=== PATIENT | female | born 1995 | race African-American/Black ===

== ENCOUNTER 2016-12-31 01:21 | Emergency (ER) | payer OTHER ==
[2016-12-31 01:52] VITALS: BP 149/92; PULSE 79; TEMP 97.9; BMI 34.3
[2016-12-31] MEDS ORDERED: metroNIDAZOLE 250 MG TABLET PO ONE (02:11)
[2016-12-31] MEDS ORDERED: AZITHROMYCIN 1 GM PACKET PO ONE (02:11)
[2016-12-31] MEDS ORDERED: valACYclovir HCL 1000 MG TABLET PO ONE (02:11)
--- NOTE | 2016-12-31 02:16 | PDOC ---
History of Present Illness - General Chief Complaint: Wound Stated Complaint: ABSCESS Time Seen by Provider: 12/31/16 01:52 History Source: Patient Exam Limitations: No Limitations - History of Present Illness Initial Comments: 12/31/16 02:21 21yo Female patient presents to ED c/o ingrown hair in vaginal area since last Friday. Patient reports she has applied warm compress to area, used Tylenol and Motrin with no relief of pain. LNMP: 1 week ago. Last sexual encounter: 2 months ago "protected." Patient states wound is draining fluid and will not heal , she also states applying triple abx to site. Denies fever, cough, dysuria, hematuria, frequency, urgency, back pain, n/v/d, CP, diff breathing, or any other complaints at this time. Timing/Duration: 1 week, getting worse Severity: severe Modifying Factors: worse with: cold therapy, eating, immobilization, medication , movement, rest, other Associated Symptoms: denies: denies symptoms, chest pain, cough, diaphoresis, fever/chills, headaches, loss of appetite, malaise, nausea/vomiting, rash, seizure, shortness of breath, syncope, weakness, other Aspirin Received prior to arrival: No: no aspirin today, unknown, 81 mg x 1, 81 mg x 2, 81 mg x 3, 81 mg x 4, 325 mg x 1, provided at home, provided by EMS, provided by [facility] Contraindications(Core Measure): No: Allergy, Other, Active Blding w/i 24 hrs., Plavix, Receiving Warfarin Past History - Travel Traveled outside of the country in the last 30 days: No Close contact w/someone who was outside of country & ill: No - Past Medical History Allergies/Adverse Reactions: Allergies Allergy/AdvReac Type Severity Reaction Status Date / Time Penicillins Allergy Mild Rash Verified 12/31/16 01:50 Home Medications: Ambulatory Orders Bupropion HCl [Wellbutrin Sr] 150 mg PO DAILY 11/09/12 Cyclobenzaprine HCl [Flexeril] 10 mg PO TID #0 tablet 11/09/12 Oxycodone HCl/Acetaminophen [Percocet 5-325 mg Tablet] 1 - 2 tab PO Q6H #14 tablet 11/09/12 Oxycodone HCl/Acetaminophen [Percocet 10-325 mg Tablet] 1 each PO Q6H PRN #20 tablet MDD 4 tab 12/31/16 Valacyclovir HCl [Valtrex -] 1,000 mg PO Q12H #14 tablet 12/31/16 - Immunization History Immunization Up to Date: Yes - Psycho/Social/Smoking Cessation Hx Anxiety: No Suicidal Ideation: No Smoking Status: Yes Smoking History: Never smoked Have you smoked in the past 12 months: No Number of Cigarettes Smoked Daily: 2 Information on smoking cessation initiated: No Hx Alcohol Use: No Drug/Substance Use Hx: No Review of Systems - Review of Systems Able to Perform ROS?: Yes Is the patient limited Mexican proficient: No Constitutional: No: Chills, Fever, Weakness Respiratory: No: Cough, Shortness of Breath, Stridor, Wheezing Cardiac (ROS): No: Chest Pain ABD/GI: No: Diarrhea, Nausea, Vomiting : Yes: Pain, Lesions. No: Burning, Dysuria, Discharge, Frequency, Flank Pain , Hematuria Musculoskeletal: No: Back Pain Integumentary: No: Rash All Other Systems: Reviewed and Negative *Physical Exam - Vital Signs Last Vital Signs Temp Pulse Resp BP Pulse Ox 97.9 F 79 20 149/92 99 12/31/16 01:50 12/31/16 01:50 12/31/16 01:50 12/31/16 01:50 12/31/16 01:50 - Physical Exam General Appearance: Yes: Nourished, Appropriately Dressed. No: Apparent Distress, Mild Distress, Moderate Distress, Severe Distress Respiratory/Chest: positive: Lungs Clear, Normal Breath Sounds. negative: Respiratory Distress, Labored Respiration, Rapid RR, Stridor, Wheezing Cardiovascular: positive: Regular Rhythm, Regular Rate. negative: Edema, JVD, Murmur Female Pelvic Exam: positive: normal adnexa, other (abnormal external exam; multiple sores/lesion noted to labia major along patient right side. Cervical os open, round. No CMT, wounds or lesion or blood noted to internal vaginal canal. Thick white odorless discharge noted. Bimanual exam WNL. ). negative: cervical os closed, CMT, discharge, adnexal tenderness, vaginal bleeding Gastrointestinal/Abdominal: positive: Normal Bowel Sounds, Soft. negative: Distended, Guarding, Rebound, Tenderness Lymphatic: negative: Adenopathy Musculoskeletal: positive: Normal Inspection. negative: CVA Tenderness Extremity: positive: Normal Capillary Refill, Normal Inspection, Normal Range of Motion. negative: Pedal Edema, Swelling Integumentary: positive: Normal Color, Dry, Warm Neurologic: positive: show card letterer II-XII NML intact, Fully Oriented, Alert, Normal Mood/ Affect, Normal Response, Motor Strength 5/5 *DC/Admit/Observation/Transfer Diagnosis at time of Disposition: Herpes genitalis in women - Discharge Dispostion Disposition: HOME Condition at time of disposition: Improved Admit: No - Prescriptions Prescriptions: Oxycodone HCl/Acetaminophen [Percocet 10-325 mg Tablet] 1 each PO Q6H PRN #20 tablet MDD 4 tab PRN Reason: Severe Pain Valacyclovir HCl [Valtrex -] 1,000 mg PO Q12H #14 tablet - Patient Instructions Printed Discharge Instructions: DI for Genital Herpes Additional Instructions: FOLLOW UP WITH YOUR CHIEF GROWTH OFFICER AND PRIMARY CARE PROVIDER. CALL TO SCHEDULE APPOINTMENT. TAKE MEDICATIONS PRESCRIBED. DO NOT DRIVE, DRINK ALCOHOL, OR OPERATE HEAVY MACHINERY WHILE TAKING PERCOCET. NO SEXUAL INTERCOURSE FOR 2 WEEKS , USE PROTECTION. NO WORK X 2 DAYS WITH REST. RETURN IF ANY CONCERNS FOR FURTHER EVALUATION. Print Language: ARMENIAN - Post Discharge Activity Work/School Note: Back to Work
[2016-12-31] MEDS ORDERED: cefTRIAXone SODIUM 1 GM VIAL ONE (02:21)
[2016-12-31] MEDS ORDERED: LIDOCAINE HCL 1%, 10 MG/ML (50 mL VIAL) INF ONE (02:26)
[2016-12-31] MEDS ORDERED: AZITHROMYCIN 1 GM PACKET ONE (02:34)
[2016-12-31] MEDS ORDERED: LIDOCAINE HCL/PF 1% SDV 5ML VIAL ONE (02:34)
[2016-12-31] MEDS ORDERED: morphine CARPU-JECT 2 MG/1 ML DISP.SYRIN IM ONE (03:12)
[2016-12-31] MEDS ORDERED: morphine CARPU-JECT 2 MG/1 ML DISP.SYRIN ONE (03:12)
[2016-12-31 03:51] LABS: URINE APPEARANCE CLEAR; URINE BILIRUBIN NEGATIVE (NEGATIVE); URINE BLOOD NEGATIVE (NEGATIVE); URINE COLOR YELLOW; URINE GLUCOSE (UA) NEGATIVE (NEGATIVE); URINE KETONE NEGATIVE (NEGATIVE); URINE LEUK ESTERASE NEGATIVE (NEGATIVE); URINE NITRITE NEGATIVE (NEGATIVE); URINE PROTEIN NEGATIVE (NEGATIVE); URINE UROBILINOGEN NEGATIVE E.U./dl (0.2-1.0)
[2017-01-02 10:19] LABS: CHLAM.TRACHOMATIS NAA Negative (Negative); GONOCOCCUS NAA Negative (Negative); TRICH VAG NAA Negative (Negative)
== END 2016-12-31 04:46 | disposition home or self-care (01) ==
LOC: JER 01:21
PROC: 3E02329 Introduction of Other Anti-infective into Muscle, Percutaneous Approach (ICD-10-PCS; principal; 2016-12-31)
PROC: 3E023NZ Introduction of Analgesics, Hypnotics, Sedatives into Muscle, Percutaneous Approach (ICD-10-PCS; 2016-12-31)
DX: A60.04 Herpesviral vulvovaginitis (principal)
CPT/HCPCS: 36415; 81003; 84703; 87070; 87086; 87186; 87205; 87491; 87591; 87661; 99282-25

== ENCOUNTER 2017-01-09 23:08 | Emergency (ER) | payer OTHER ==
[2017-01-09 23:18] VITALS: BP 144/88; PULSE 85; TEMP 98.4; BMI 49.8
--- NOTE | 2017-01-09 23:44 | PDOC ---
History of Present Illness - General History Source: Patient Exam Limitations: No Limitations - History of Present Illness Initial Comments: 01/10/17 00:26 The patient is a 21 year old female, with no specific past medical history, who presents to the emergency department complaining of a sore throat for approximately two days. The patient reports a frequent history of streptococcus pneumoniae infections. She reports todays symptoms are similar to when she has had strep in the past. She reports some swelling to the lymph nodes around the neck. The patient denies any body aches, fever, chills, headache, cough, or dizziness. The patient denies any abdominal pain, nausea, vomiting, diarrhea, or constipation. The patient denies any dysuria, hematuria, frequency, or urgency. The patient denies any recent travel or sick contacts. Allergies: Penicillins Past Surgical History: None reported. Social History: Current everyday smoker (6 cigarettes per day). Denies alcohol or drug use. <Monique Braxton - Last Filed: 01/10/17 00:25> - General History Source: Patient <Marc Andrea - Last Filed: 01/10/17 01:06> - General Chief Complaint: Sore Throat Stated Complaint: SWOLLEN GLANDS Time Seen by Provider: 01/09/17 23:43 Past History <Monique Braxton - Last Filed: 01/10/17 00:25> - Immunization History Immunization Up to Date: Yes - Psycho/Social/Smoking Cessation Hx Anxiety: No Suicidal Ideation: No Smoking Status: Yes Smoking History: Current every day smoker Have you smoked in the past 12 months: No Number of Cigarettes Smoked Daily: 6 Information on smoking cessation initiated: No Hx Alcohol Use: No Drug/Substance Use Hx: No <Marc Andrea - Last Filed: 01/10/17 01:06> - Past Medical History Allergies/Adverse Reactions: Allergies Allergy/AdvReac Type Severity Reaction Status Date / Time Penicillins Allergy Mild Rash Verified 01/09/17 23:10 Home Medications: Ambulatory Orders Ibuprofen 800 mg PO TID #30 tablet 01/10/17 Valacyclovir HCl [Valtrex -] 1,000 mg PO TID #60 tablet 01/10/17 Review of Systems - Review of Systems Able to Perform ROS?: Yes Comments:: 01/10/17 00:26 CONSTITUTIONAL: Absent: fever, no chills, no fatigue EYES: Absent: visual changes HEENT: Present: +sore throat, +throat swelling, Absent: rhinorrhea, nasal congestion, mouth swelling, ear pain, eye pain, visual Changes CARDIOVASCULAR: Absent: chest pain, no palpitations RESPIRATORY: Absent: cough, no SOB GI: Absent: abdominal pain, no nausea, no vomiting, no constipation, no diarrhea GENITOURINARY: Absent: dysuria, no frequency, no hematuria MUSKULOSKELETAL: Absent: back pain, no arthralgia, no myalgia SKIN: Absent: rash NEURO: Absent: headache <Danae Braxtonomivety - Last Filed: 01/10/17 00:25> *Physical Exam - Vital Signs Last Vital Signs Temp Pulse Resp BP Pulse Ox 98.4 F 85 14 144/88 99 01/09/17 23:11 01/09/17 23:11 01/09/17 23:11 01/09/17 23:11 01/09/17 23:11 - Physical Exam Comments: 01/10/17 00:30 GENERAL: Well-appearing, well-nourished. No apparent distress. HEENT: Normocephalic, atraumatic. PERRLA, EOMI. No conjunctival pallor. Sclera are non- icteric. Moist mucous membranes. Enlarged tonsils, nonerythematous with no exudate. NECK: Supple. Full ROM. No JVD. Carotid pulses 2+ and symmetric, without bruits. No thyromegaly. Edematous bilateral glands. Mild tenderness to palpation to nodes posterior of SCM. CARDIOVASCULAR: Normal S1, S2. Regular rate and rhythm. PULMONARY: Clear to auscultation bilaterally. ABDOMEN: Soft, non-distended, non-tender. EXTREMITIES: Normal ROM in all four extremities. No gross deformities. SKIN: Warm, dry. No rash NEUROLOGICAL: No focal neurological deficits. <Monique Braxton - Last Filed: 01/10/17 00:25> - Vital Signs Last Vital Signs Temp Pulse Resp BP Pulse Ox 98.4 F 85 14 144/88 99 01/09/17 23:11 01/09/17 23:11 01/09/17 23:11 01/09/17 23:11 01/09/17 23:11 <Marc Andrea - Last Filed: 01/10/17 01:06> Medical Decision Making - Medical Decision Making 01/10/17 01:06 Dr. Andrea: The scribe's documentation has been prepared under my direction and personally reviewed by me in its entirery. I confirm that the note above accurately reflects all work, treatment, procedures, and medical decision making performed by me. <Marc Andrea - Last Filed: 01/10/17 01:06> *DC/Admit/Observation/Transfer - Attestations Scribe Attestion: 01/10/17 00:30 Documentation prepared by Monique Braxton, acting as biomedical equipment tech for Marc Andrea DO. <Monique Braxton - Last Filed: 01/10/17 00:25> - Discharge Dispostion Admit: No <Marc Andrea - Last Filed: 01/10/17 01:06> Diagnosis at time of Disposition: Viral pharyngitis - Discharge Dispostion Disposition: HOME Condition at time of disposition: Stable - Prescriptions Prescriptions: Ibuprofen 800 mg PO TID #30 tablet Valacyclovir HCl [Valtrex -] 1,000 mg PO TID #60 tablet - Referrals Referrals: Donnie Rocha MD [Staff Physician] - - Patient Instructions Printed Discharge Instructions: DI for Viral Pharyngitis Additional Instructions: Please follow up with your doctor and the doctor you were referred to. Take medication as directed.
== END 2017-01-10 01:09 | disposition home or self-care (01) ==
LOC: JER 23:08
DX: J02.9 Acute pharyngitis, unspecified (principal); B97.89 Other viral agents as the cause of diseases classified elsewhere
CPT/HCPCS: 87070; 87430; 99281-25

== ENCOUNTER 2021-08-13 13:53 | Emergency (ER) | payer OTHER ==
[2021-08-13 14:17] VITALS: BMI 58.3
[2021-08-13] MEDS ORDERED: METOCLOPRAMIDE HCL INJECTION 10 MG/2 ML VIAL IVPB ONE (15:07)
[2021-08-13] MEDS ORDERED: SODIUM CHLORIDE 1,000 ML IV STA (15:07)
[2021-08-13] MEDS ORDERED: ACETAMINOPHEN 1000 MG/100 ML VIAL (NON FORMULARY) IVPB ONE (15:07)
[2021-08-13] MEDS ORDERED: METOCLOPRAMIDE HCL INJECTION 10 MG/2 ML VIAL ONE (15:21)
[2021-08-13] MEDS ORDERED: ACETAMINOPHEN INJECTION 100 ML IVPB ONE (15:21)
[2021-08-13 16:27] LABS: BASO % 0.7 % (0-2.0); EOS % 0.4 % (0-4.5); HEMOGLOBIN 13.5 GM/dL (10.7-15.3); MCH 30.3 pg (25.7-33.7); MCHC 33.8 g/dl (32.0-36.0); MEAN CELL VOLUME 89.6 fl (80-96); MEAN PLT VOLUME 7.2 fl (7.5-11.1); NEUT % 73.9 % (42.8-82.8); PLATELET COUNT 383 10^3/uL (134-434); RBC 4.46 M/mm3 (3.60-5.2); RDW 14.9 % (11.6-15.6); WHITE BLOOD COUNT 9.9 K/mm3 (4.0-10.0)
[2021-08-13 16:41] LABS: CHLORIDE 102 mmol/L (98-107); SODIUM 131 mmol/L (136-145)
[2021-08-13 16:43] LABS: CALCIUM 8.7 mg/dL (8.5-10.1)
[2021-08-13 16:44] LABS: ALBUMIN 3.8 g/dl (3.4-5.0); CO2 25 mmol/L (21-32); GLUCOSE,RANDOM 96 mg/dL (74-106)
[2021-08-13 16:47] LABS: CREATININE 0.8 mg/dL (0.55-1.3)
[2021-08-13 16:48] LABS: BILIRUBIN,TOTAL 0.3 mg/dL (0.2-1); TOT PROT 9.7 g/dl (6.4-8.2)
[2021-08-13 16:49] LABS: ALK PHOS 81 U/L (45-117)
[2021-08-13 16:52] LABS: ANION GAP 4 MMOL/L (8-16); SGOT/AST 105 U/L (15-37); SGPT/ALT 25 U/L (13-61)
[2021-08-13] MEDS ORDERED: ONDANSETRON *ODT* 4 MG TABLET SL ONE (18:00)
[2021-08-13] MEDS ORDERED: ONDANSETRON *ODT* 4 MG TABLET ONE (18:12)
[2021-08-13 18:24] LABS: URINE APPEARANCE CLOUDY; URINE BILIRUBIN NEGATIVE (NEGATIVE); URINE COLOR YELLOW; URINE GLUCOSE (UA) NEGATIVE (NEGATIVE); URINE KETONE NEGATIVE (NEGATIVE); URINE LEUK ESTERASE NEGATIVE (NEGATIVE); URINE NITRITE NEGATIVE (NEGATIVE); URINE PROTEIN TRACE (NEGATIVE)
[2021-08-13 19:16] LABS: CALCIUM 8.5 mg/dL (8.5-10.1)
[2021-08-13 19:17] LABS: ALBUMIN 3.6 g/dl (3.4-5.0); BLOOD UREA NITROGEN 9.8 mg/dL (7-18)
[2021-08-13 19:21] LABS: BILIRUBIN,TOTAL 0.3 mg/dL (0.2-1); CREATININE 0.7 mg/dL (0.55-1.3)
[2021-08-13 19:22] LABS: TOT PROT 8.4 g/dl (6.4-8.2)
[2021-08-13] MEDS ORDERED: KETOROLAC TROMETHAMINE 30 MG/1 ML VIAL IVPUSH ONE (19:30)
[2021-08-13] MEDS ORDERED: KETOROLAC TROMETHAMINE 30 MG/1 ML VIAL ONE (19:38)
[2021-08-13 22:53] VITALS: BP 150/90; PULSE 86; TEMP 98.9
== END 2021-08-13 22:53 | disposition home or self-care (01) ==
LOC: JER 13:53
PROC: 3E0333Z Introduction of Anti-inflammatory into Peripheral Vein, Percutaneous Approach (ICD-10-PCS; principal; 2021-08-13)
PROC: 3E0333Z Introduction of Anti-inflammatory into Peripheral Vein, Percutaneous Approach (ICD-10-PCS; 2021-08-13)
PROC: 3E033GC Introduction of Other Therapeutic Substance into Peripheral Vein, Percutaneous Approach (ICD-10-PCS; 2021-08-13)
PROC: 3E0337Z Introduction of Electrolytic and Water Balance Substance into Peripheral Vein, Percutaneous Approach (ICD-10-PCS; 2021-08-13)
DX: G43.109 Migraine with aura, not intractable, without status migrainosus (principal)
CPT/HCPCS: 36415; 70450-TC; 70496-TC; 80053; 81003; 84703; 85025; 87086; 87186; 99285-25; C9803; J0131; Q0162; Q9967; U0003; U0005

== ENCOUNTER 2021-08-14 20:40 | Inpatient (IN) | payer OTHER ==
[2021-08-14 21:31] VITALS: BMI 53.2
[2021-08-14] MEDS ORDERED: KETOROLAC TROMETHAMINE 30 MG/1 ML VIAL IVPUSH ONE (22:33)
[2021-08-14] MEDS ORDERED: SODIUM CHLORIDE 1,000 ML IV STA (22:33)
[2021-08-14] MEDS ORDERED: METOCLOPRAMIDE HCL INJECTION 10 MG/2 ML VIAL IVPUSH ONE (22:33)
[2021-08-14] MEDS ORDERED: KETOROLAC TROMETHAMINE 30 MG/1 ML VIAL ONE (23:19)
[2021-08-14] MEDS ORDERED: METOCLOPRAMIDE HCL INJECTION 10 MG/2 ML VIAL ONE (23:19)
[2021-08-14 23:47] LABS: HEMATOCRIT 38.7 % (32.4-45.2); HEMOGLOBIN 13.4 GM/dL (10.7-15.3); MCH 30.6 pg (25.7-33.7); MCHC 34.7 g/dl (32.0-36.0); MEAN CELL VOLUME 88.2 fl (80-96); MEAN PLT VOLUME 7.3 fl (7.5-11.1); PLATELET COUNT 386 10^3/uL (134-434); RBC 4.39 M/mm3 (3.60-5.2); RDW 14.6 % (11.6-15.6); WHITE BLOOD COUNT 9.7 K/mm3 (4.0-10.0)
[2021-08-15 00:05] LABS: CALCIUM 8.6 mg/dL (8.5-10.1)
[2021-08-15 00:06] LABS: ALBUMIN 3.5 g/dl (3.4-5.0); BLOOD UREA NITROGEN 12.7 mg/dL (7-18)
[2021-08-15 00:09] LABS: CREATININE 0.7 mg/dL (0.55-1.3)
[2021-08-15 00:11] LABS: BILIRUBIN,TOTAL 0.5 mg/dL (0.2-1); TOT PROT 8.8 g/dl (6.4-8.2)
[2021-08-15] MEDS ORDERED: ACETAMINOPHEN 1000 MG/100 ML VIAL (NON FORMULARY) IVPB ONE (00:21)
[2021-08-15] MEDS ORDERED: ACETAMINOPHEN INJECTION 100 ML IVPB ONE (00:38)
[2021-08-15 01:02] LABS: ANISOCYTOSIS 0; HELMET CELLS 0; HOWELL-JOLLY BODIES 0; MACROCYTOSIS 0; OVALOCYTE 0; PLATELET ESTIMATE NORMAL; ROULEAU 0; SICKELED CELLS 0; TARGET CELLS 0; TEAR DROP CELLS 0; TOXIC GRANULATION 0
[2021-08-15] MEDS ORDERED: methylPREDNISolone NA SUCC 125 MG/2 ML VIAL IVPB ONE (02:03)
[2021-08-15 08:53] LABS: HEMATOCRIT 39.5 % (32.4-45.2); HEMOGLOBIN 13.8 GM/dL (10.7-15.3); MCH 30.8 pg (25.7-33.7); MEAN CELL VOLUME 88.1 fl (80-96); MEAN PLT VOLUME 7.1 fl (7.5-11.1); PLATELET COUNT 389 10^3/uL (134-434); RBC 4.48 M/mm3 (3.60-5.2); RDW 14.4 % (11.6-15.6); WHITE BLOOD COUNT 9.4 K/mm3 (4.0-10.0)
[2021-08-15 09:15] LABS: BLOOD UREA NITROGEN 14.3 mg/dL (7-18); CALCIUM 8.5 mg/dL (8.5-10.1)
[2021-08-15 09:19] LABS: CREATININE 0.7 mg/dL (0.55-1.3)
[2021-08-15 11:35] LABS: EPI CELLS >36 /uL (0-25.1); HYALINE CASTS 8 /uL (0-3.1); PH,URINE 6.5 (5.0-8.0); URINE APPEARANCE CLOUDY; URINE BACTERIA 2103 /uL (0-1359); URINE BILIRUBIN 1+ (NEGATIVE); URINE COLOR DK YELLOW; URINE GLUCOSE (UA) NEGATIVE (NEGATIVE); URINE KETONE 3+ (NEGATIVE); URINE LEUK ESTERASE TRACE (NEGATIVE); URINE NITRITE NEGATIVE (NEGATIVE); URINE PROTEIN 3+ (NEGATIVE); URINE RBC 32 /uL (0-23.9); URINE WBC 434 /uL (0-25.8)
[2021-08-15] MEDS ORDERED: DEXAMETHASONE SOD PHOSPHATE 4 MG/1 ML VIAL IVPUSH ONE (12:09)
[2021-08-15] MEDS: ACETAMINOPHEN 325 MG TABLET (FP) PO PRN (14:07)
[2021-08-15] MEDS ORDERED: hydrOXYzine PAMOATE 50 MG CAPSULE (FP) PO PRN (22:00)
[2021-08-15] MEDS: TOPIRAMATE 25 MG TABLET PO SCH (23:25)
[2021-08-16 05:49] VITALS: TEMP 98
[2021-08-16 08:42] LABS: BASO % 0.3 % (0-2.0); HEMATOCRIT 42.8 % (32.4-45.2); HEMOGLOBIN 14.5 GM/dL (10.7-15.3); LYMPH % 24.4 % (8-40); MCH 30.6 pg (25.7-33.7); MCHC 33.9 g/dl (32.0-36.0); MEAN CELL VOLUME 90.3 fl (80-96); MEAN PLT VOLUME 7.6 fl (7.5-11.1); MONO % 8.5 % (3.8-10.2); NEUT % 66.8 % (42.8-82.8); PLATELET COUNT 445 10^3/uL (134-434); RBC 4.74 M/mm3 (3.60-5.2); RDW 14.5 % (11.6-15.6); WHITE BLOOD COUNT 9.9 K/mm3 (4.0-10.0)
[2021-08-16 09:11] LABS: ALBUMIN 3.6 g/dl (3.4-5.0); CALCIUM 8.8 mg/dL (8.5-10.1)
[2021-08-16] MEDS ORDERED: PT OWN MED DRAWER 7, Y5N ONE (09:11)
[2021-08-16 09:12] LABS: BLOOD UREA NITROGEN 18.4 mg/dL (7-18)
[2021-08-16 09:13] LABS: MAGNESIUM 2.6 mg/dL (1.8-2.4)
[2021-08-16 09:15] LABS: CREATININE 0.8 mg/dL (0.55-1.3); PHOSPHOROUS 3.5 mg/dL (2.5-4.9)
[2021-08-16 09:16] LABS: BILIRUBIN,TOTAL 0.6 mg/dL (0.2-1)
[2021-08-16] MEDS: TOPIRAMATE 25 MG TABLET PO SCH (09:32)
[2021-08-16] MEDS ORDERED: OLANZapine 5 MG TABLET PO SCH (10:00)
[2021-08-16] MEDS ORDERED: LITHIUM CARBONATE 300 MG CAPSULE PO SCH (10:00)
[2021-08-16] MEDS ORDERED: SUMAtriptan SUCCINATE 50 MG TABLET PO PRN (12:35)
[2021-08-16 16:36] VITALS: BP 150/80; PULSE 84
[2021-08-16] MEDS ORDERED: amLODIPine BESYLATE 5 MG TABLET (FP) PO SCH (17:15)
[2021-08-16] MEDS: ACETAMINOPHEN 325 MG TABLET (FP) PO PRN (17:19)
[2021-08-16] MEDS ORDERED: DEXAMETHASONE SOD PHOSPHATE 4 MG/1 ML VIAL IVPUSH ONE (20:13)
[2021-08-16] MEDS ORDERED: SUMAtriptan SUCCINATE 50 MG TABLET PO ONE (20:15)
== END 2021-08-16 20:30 | disposition home or self-care (01) | DRG 54 ==
LOC: JER 20:40 → JERBED 08-15 01:50 → J6S 08-15 11:50
PROVIDERS: ADMIT Internal Medicine; ATTEND Internal Medicine
DX: G43.909 Migraine, unspecified, not intractable, without status migrainosus (principal); F31.9 Bipolar disorder, unspecified; F17.210 Nicotine dependence, cigarettes, uncomplicated; M79.10 Myalgia, unspecified site; E66.01 Morbid (severe) obesity due to excess calories; Z68.43 Body mass index [BMI] 50.0-59.9, adult; Q03.0 Malformations of aqueduct of Sylvius; E03.9 Hypothyroidism, unspecified; R73.03 Prediabetes
CPT/HCPCS: 36415; 70551-TC; 80048; 80053; 80178; 81003; 82550; 82553; 83036; 83735; 84100; 84439; 84443; 85025; 85027; 87086; 87804; 99285-25; C9803; J0131; U0003; U0005